=== PATIENT | male | born 1975 | race African-American/Black ===

== ENCOUNTER 2017-01-10 16:49 | Emergency (ER) | payer MEDICARE ==
[~2017-01-10 16:49] MED LIST: ASPIRIN ADULT L81 M2; ATENOLOL25 MG PO; ATENOLOL50 MG PO; ATORVASTATI80 MG/TAB PO; AZITHROMYCIN250 MG PO; BACTRIM DS1 TAB PO; BENADRYL25 MG; BRILINTA90 MG PO; CATAPRES0.1 MG PO; CIPRODEX1 ML AS; CLINDAMYCIN300 M1 PO; DENIES CURRENT MEDS; DIOVAN80 MG PO; FLEXERIL PO; FLONASE NASAL50 MCG; HYDROCHLOROT12.5 MG PO; HYDROCODONE/ACE1 TAB PO; LISINOP/HCTZ1 TA1 PO; LISINOPRIL/HYDR1 TA1 PO; LISINOPRIL20 M1 PO; LISINOPRIL20 MG PO; LORTAB 10-325 M1 TAB PO; LORTAB 5/3255 MG PO; LORTAB 7.5-3251 TAB PO; MAXZIDE-25MG1 COMBO PO; MEDDOSEPAK OR; METOPROLOL50 M1 PO; MOTRIN800 MG PO; MUCINEX D1 TAB PO; NAPROSYN500 MG PO; NEXIUM40 M1 PO; NO HOME MEDS; NORCO1 TA1 PO; NORCO1 TA2 PO; PERCOCET 10/31 COMBO PO; PERCOCET 5/325M1 TAB PO; PREVPAC PO; PROTONIX40 M2 PO; PROTONIX40 MG PO; ROBITUSSIN AC10 ML PO; TENORMIN25 MG PO; TESSALON200 MG PO; TRAMADOL HCL50 MG PO; TUSSIONEX1 ML OR; ULTRAM50 M1 PO; ULTRAM50 MG OR; ZITHROMAX250 MG OR; ZITHROMAX250 MG PO; ZITHROMAX500 MG PO; ZOFRAN ODT8 MG PO; ZOFRAN4 MG/TAB PO; ZPAK PO
== END 2017-01-10 17:05 | disposition left against medical advice (07) ==
LOC: ED 16:49 → LWOBS 17:05
DX: Z91.19 Patient's noncompliance with other medical treatment and regimen (principal)

== ENCOUNTER 2018-11-03 08:47 | Emergency (ER) | payer MEDICARE, MEDICAID ==
[~2018-11-03] VITALS: Ht 172.7 cm; Wt 100.0 kg
[~2018-11-03 08:47] MED LIST changes: +FLEXERIL5 M1 PO; +HYZAAR1 TA1 PO; +VOLTAREN - GENE75 MG PO
[2018-11-03 09:03] VITALS: BP 152/92
[2018-11-03] MEDS ORDERED: HYZAAR1 TA2 PO (09:10)
[2018-11-03] MEDS ORDERED: NIFEDIPINE10 M1 PO (09:11)
[2018-11-03] MEDS ORDERED: TRAMADOL HYDROC50 MG PO (09:53)
== END 2018-11-03 10:05 | disposition home or self-care (01) ==
LOC: ED 08:47
DX: K08.89 Other specified disorders of teeth and supporting structures (principal); K08.409 Partial loss of teeth, unspecified cause, unspecified class

== ENCOUNTER 2019-02-07 14:05 | Emergency (ER) | payer OTHER ==
[~2019-02-07] VITALS: Ht 172.7 cm; Wt 100.0 kg
[~2019-02-07 14:05] MED LIST changes: +HYZAAR1 TA2 PO; +NIFEDIPINE10 M1 PO; +TRAMADOL HYDROC50 MG PO
[2019-02-07] MEDS ORDERED: ATORVASTATIN CA80 MG PO (14:21)
[2019-02-07 14:45] LABS: HEMATOCRIT 40.8 % (39.0-50.0); HEMOGLOBIN 12.4 g/dl (14.0-18.0); IMMATURE GRANULOCYTES 0.4 % (0.0-5.0); MEAN CELL VOLUME 76.7 fL CALC (80.0-100.0); MEAN CORPUSCULAR HGB 23.3 pG CALC (26.0-32.0); MEAN CORPUSCULAR HGB CONC 30.4 g/L CALC (32.0-36.0); NEUT# 2.96 thou/uL (1.82-7.42); RED BLOOD COUNT 5.32 mill/uL (4.70-6.10)
[2019-02-07 15:09] LABS: ALBUMIN 4.6 g/dL (3.2-5.0); ALKALINE PHOSPHATASE 56 u/l (38-126); ANION GAP 14 (6-22 (CALC)); BILIRUBIN, TOTAL 0.7 mg/dL (0.0-1.4); BUN 13 mg/dL (9-20); BUN/CREATININE RATIO 16 (12-20 (CALC)); CARBON DIOXIDE 29 mmol/l (22-30); CHLORIDE 102 mmol/l (95-108); CREATININE 0.8 mg/dL (0.7-1.3); GFR > 60 ML/MIN (>=60 (CALC)); GFR FOR AFR.AMER. > 60 ML/MIN (>=60 (CALC)); LIPASE 39 u/l (23-300); POTASSIUM 3.7 mmol/l (3.5-5.1); SGOT/AST 34 u/l (17-59); SODIUM 142 mmol/l (137-146)
[2019-02-07 18:17] VITALS: BP 122/66
== END 2019-02-07 18:24 | DRG 313 ==
LOC: ED 14:05
PROVIDERS: Emergency Medicine
DX: R07.89 Other chest pain (principal); I10 Essential (primary) hypertension; I25.2 Old myocardial infarction; Z86.73 Personal history of transient ischemic attack (TIA), and cerebral infarction without residual deficits

== ENCOUNTER 2019-06-09 14:32 | Emergency (ER) | payer OTHER ==
[~2019-06-09] VITALS: Ht 172.7 cm; Wt 100.0 kg
[~2019-06-09 14:32] MED LIST changes: -ASPIRIN ADULT L81 M2; +ASPIRIN ADULT L81 M2 PO; +ATORVASTATIN CA80 MG PO
[2019-06-09] MEDS ORDERED: HYDROXYZ HCL25 MG PO (14:49)
[2019-06-09] MEDS ORDERED: NIFEDIPINE60 MG PO (14:51)
[2019-06-09] MEDS ORDERED: MYTAB GAS80 MG PO (14:52)
[2019-06-09] MEDS ORDERED: ECK ANTACID1 CHW PO (14:52)
[2019-06-09] MEDS ORDERED: TYLENOL500 MG PO (14:53)
[2019-06-09 15:00] LABS: HEMATOCRIT 39.4 % (39.0-50.0); HEMOGLOBIN 12.1 g/dl (14.0-18.0); IMMATURE GRANULOCYTES 0.2 % (0.0-5.0); MEAN CELL VOLUME 75.6 fL CALC (80.0-100.0); MEAN CORPUSCULAR HGB 23.2 pG CALC (26.0-32.0); MEAN CORPUSCULAR HGB CONC 30.7 g/L CALC (32.0-36.0); NEUT# 1.34 thou/uL (1.82-7.42); RED BLOOD COUNT 5.21 mill/uL (4.70-6.10); RED CELL DISTRI WIDTH 16.6 % (11.5-15.5)
[2019-06-09 15:17] LABS: ANION GAP 12 (6-22 (CALC)); BUN 10 mg/dL (9-20); BUN/CREATININE RATIO 11 (12-20 (CALC)); CARBON DIOXIDE 29 mmol/l (22-30); CHLORIDE 103 mmol/l (95-108); CREATININE 0.9 mg/dL (0.7-1.3); GFR > 60 ML/MIN (>=60 (CALC)); GFR FOR AFR.AMER. > 60 ML/MIN (>=60 (CALC)); POTASSIUM 3.7 mmol/l (3.5-5.1); SODIUM 141 mmol/l (137-146)
[2019-06-09 16:52] LABS: INTERNATIONAL NORMALIZED RATIO 0.9 RATIO (0.7-1.3); PROTHROMBIN TIME 9.8 SECONDS (9.0-12.5)
[2019-06-09 18:37] VITALS: BP 139/76
== END 2019-06-09 18:40 | disposition short-term general hospital (02) | DRG 311 ==
LOC: ED 14:32 → ED-I 15:02 → ED 15:02 → ED-I 16:14 → ED 18:40
PROVIDERS: Family Medicine
DX: I20.0 Unstable angina (principal); I10 Essential (primary) hypertension; I25.2 Old myocardial infarction; Z95.5 Presence of coronary angioplasty implant and graft
CPT/HCPCS: J1644

== ENCOUNTER 2020-04-02 23:29 | Emergency (ER) | payer MEDICARE, MEDICAID ==
[~2020-04-02 23:29] MED LIST changes: +ECK ANTACID1 CHW PO; +HYDROXYZ HCL25 MG PO; +MYTAB GAS80 MG PO; +NIFEDIPINE60 MG PO; +TYLENOL500 MG PO
[2020-04-03 02:16] LABS: URINE BILIRUBIN - DIPSTICK NEGATIVE (NEGATIVE); URINE BLOOD DIPSTICK NEGATIVE (NEGATIVE); URINE COLOR YELLOW; URINE GLUCOSE - DIPSTICK NEGATIVE (NEGATIVE); URINE KETONE NEGATIVE (NEGATIVE); URINE LEUK ESTERASE NEGATIVE (NEGATIVE); URINE NITRITE - DIPSTICK NEGATIVE (Negative); URINE PROTEIN - DIPSTICK NEGATIVE (NEG-TRACE); URINE UROBILINOGEN - DIPSTICK 0.2 E.U./dL (0.2)
[2020-04-03] MEDS ORDERED: ORPHENADRINE100 MG PO (02:49)
[2020-04-03] MEDS ORDERED: IBUPROFEN600 MG PO (02:50)
[2020-04-03 03:07] VITALS: BP 119/68
== END 2020-04-03 03:13 | disposition home or self-care (01) ==
LOC: ED 23:29
PROVIDERS: Emergency Medicine
DX: M54.5 Low back pain (principal); I10 Essential (primary) hypertension; I25.2 Old myocardial infarction; Z86.73 Personal history of transient ischemic attack (TIA), and cerebral infarction without residual deficits

== ENCOUNTER 2020-12-09 17:10 | Emergency (ER) | payer OTHER, MEDICARE ==
[~2020-12-09] VITALS: Ht 175.3 cm; Wt 106.0 kg
[~2020-12-09 17:10] MED LIST changes: +IBUPROFEN600 MG PO; +ORPHENADRINE100 MG PO
[2020-12-09] MEDS ORDERED: NIFEDIPINE ER90 MG PO (18:17)
[2020-12-09] MEDS ORDERED: LOPRESSOR 550 MG/TAB PO (18:18)
[2020-12-09] MEDS ORDERED: PROMETHAZINE PO (18:19)
[2020-12-09 18:55] VITALS: BP 151/89
== END 2020-12-09 18:55 | disposition home or self-care (01) | DRG 563 ==
LOC: ED 17:10
DX: S46.912A Strain of unspecified muscle, fascia and tendon at shoulder and upper arm level, left arm, initial encounter (principal); I10 Essential (primary) hypertension; I25.2 Old myocardial infarction; F41.9 Anxiety disorder, unspecified; V89.2XXA Person injured in unspecified motor-vehicle accident, traffic, initial encounter; Z86.73 Personal history of transient ischemic attack (TIA), and cerebral infarction without residual deficits; Z95.5 Presence of coronary angioplasty implant and graft

== ENCOUNTER 2021-04-13 13:33 | Observation (INO) | payer MEDICARE, MEDICAID ==
[~2021-04-13] VITALS: Ht 175.3 cm; Wt 98.0 kg
[~2021-04-13 13:33] MED LIST changes: +LOPRESSOR 550 MG/TAB PO; +NIFEDIPINE ER90 MG PO; +PROMETHAZINE PO
--- NOTE | 2021-04-13 13:43 | NUR ---
AMBULATED TO ROOM WITH STEADY GAIT, ACCOMPANIED BY .
[2021-04-13 14:26] LABS: HEMATOCRIT 41.7 % (39.0-50.0); HEMOGLOBIN 13.3 g/dl (14.0-18.0); IMMATURE GRANULOCYTES 0.2 % (0.0-5.0); MEAN CELL VOLUME 75.1 fL CALC (80.0-100.0); MEAN CORPUSCULAR HGB CONC 31.9 g/dL CAL (32.0-36.0); NEUT# 4.12 thou/uL (1.82-7.42); RED BLOOD COUNT 5.55 mill/uL (4.70-6.10); RED CELL DISTRI WIDTH 15.7 % (11.5-15.5)
[2021-04-13 14:28] LABS: URINE BILIRUBIN - DIPSTICK NEGATIVE (NEGATIVE); URINE BLOOD DIPSTICK NEGATIVE (NEGATIVE); URINE COLOR YELLOW; URINE GLUCOSE - DIPSTICK NEGATIVE (NEGATIVE); URINE KETONE NEGATIVE (NEGATIVE); URINE LEUK ESTERASE NEGATIVE (NEGATIVE); URINE PH 7.5 (4.5-8.0); URINE PROTEIN - DIPSTICK NEGATIVE (NEG-TRACE); URINE UROBILINOGEN - DIPSTICK 0.2 E.U./dL (0.2)
[2021-04-13 14:31] LABS: URINE NITRITE - DIPSTICK NEGATIVE (Negative)
--- NOTE | 2021-04-13 14:50 | NUR ---
MEDICATED WITH TORADOL IVP, ATIVAN IVP FOR C/O 7/10 RUQ PAIN.
[2021-04-13 14:58] LABS: ALBUMIN 4.2 g/dL (3.2-5.0); ALKALINE PHOSPHATASE 58 u/l (38-126); ANION GAP 13 (6-22 (CALC)); BUN 12 mg/dL (9-20); BUN/CREATININE RATIO 12 (12-20 (CALC)); CARBON DIOXIDE 31 mmol/l (22-30); CHLORIDE 98 mmol/l (95-108); GFR > 60 ML/MIN (>=60 (CALC)); GFR FOR AFR.AMER. > 60 ML/MIN (>=60 (CALC)); LIPASE 35 u/l (23-300); SGOT/AST 36 u/l (17-59); SODIUM 138 mmol/l (137-146); TOTAL PROTEIN 7.8 g/dL (6.3-8.2)
[2021-04-13 15:02] LABS: BILIRUBIN, TOTAL 1.2 mg/dL (0.0-1.4)
[2021-04-13] MEDS ORDERED: ATORVASTATIN CA20 MG PO (15:39)
--- NOTE | 2021-04-13 16:42 | NUR ---
MEDICATED WITH MORPHINE 4MG IVP FOR C/O 8/ RUQ PAIN.
--- NOTE | 2021-04-13 16:50 | NUR ---
MD AT BEDSIDE TO DISCUSS RESULTS AND POC.
--- NOTE | 2021-04-13 17:00 | NUR ---
SBAR PRINTED TO FLOOR
--- NOTE | 2021-04-13 18:58 | NUR ---
IN ROOM IV ANTIBIOTIC INFUSING WELL, NO REDNESSOR EDEMA NOTED.
--- NOTE | 2021-04-13 19:07 | NUR ---
REPORT CALLED TO XAVIER DOLL.
--- NOTE | 2021-04-13 19:09 | NUR ---
TO MED SURG VIA WHEELCHAIR
[2021-04-13 19:12] VITALS: BP 130/72
--- NOTE | 2021-04-13 19:30 | NUR ---
PATIENT ADMITTED FROM ER VIA WHEELCHAIR WITH ER STAFF IN ATTENDANCE. PATIENT IS ABLE TO TRANSFER TO BED INDEPENDENTLY BUT DOES HAVE SOME RIGHT SIDED WEAKNESS FROM PREVIOUS STROKE. AWAKE ALERT AND ORIENTEDX3. ADMITTED FOR ACUTE APPY WITH DR. FLORES ON SURGICAL CONSULT. IV SITE TO LAC INTACT AND HEALTHY AT THIS TIME WITH GOOD BLOOD RETURN. PATIENT MEDICATED WITH DILAUDID 1MG IVP FOR RIGHT SIDED ABD PAIN. IVF NS HUNG AND INFUSING AT 125CC/HR. NPO AT THIS TIME. ABD IS SOFT WITH ACTIVE BS. VOIDING QS CLEAR YELLOW URINE IN URINAL. LUNGS ARE CLEAR. NO PERIPHERAL EDEMA NOTED. PULSES ARE PALPABLE. ORIENTED PATIENT TO ROOM AND SURROUNDINGS. INSRUCTED ON USE OF NURSE CALL LIGHT SYSTEM, TV REMOTE AND PHONE. SAFETY PRECAUTIONS REINFORCED. CALL LIGHT IN REACH. WILL CONT TO MONITOR.
--- NOTE | 2021-04-13 23:30 | NUR ---
PATIENT RESTING IN BED AT THIS TIME-AWAKE ALERT AND ORIENTED. REMAINS NPO FOR OR. KCL RIDER INFUSING VIA LAC SITE AT 50CC/HR. IVF PATENT AND INFUSING AT 125CC/HR. CALL LIGHT IN REACH. WILL CONT TO MONITOR.
[2021-04-14] VITALS (11 sets, daily range): BP systolic 118–154; BP diastolic 63–86
--- NOTE | 2021-04-14 00:49 | NUR ---
RECIEVED CALL FROM DR. FLORES TO SAY THAT HE WAS GOING TO TAKE THIS PATIENT TO SURGERY TONIGHT FOR LAP APPY. PATIENT REMAINS NPO-LAST ATE AT 1330 YESTERDAY. PATIENT ADVISED OF THE SURGERY TO BE DONE TONIGHT. PATIENT UP TO THE BR TO VOID AND TOOK SHOWER USING ANTIBACTERIAL SCRUB. NO JEWELERY ON. IVF NS PATIENT AND INFUSING VIA LAC SITE ORDERED. KCL IS IN PROGRESS ORDERED AT 50CC/HR. SITE IS HEALTHY. PATIENT IS ANXIOUS-MEDICATED FOR PAIN WITH DILAUDID 1MG IVP FOR 7/10 PAIN SCALE. CONSENT SIGNED AND PRE-OP CHECKLIST IS DONE. SAFETY PRFECAUTIONS REINFORCED. CALL LIGHT IN REACH. WILL CONT TO MONITOR.
--- NOTE | 2021-04-14 01:25 | NUR ---
KCL RIDER FINISHED. ZOFRAN 4MG IVP GIVEN FOR NAUSEA. IVF NS PATENT AND INFUSING VIA LAC SITE. PATIENT CONT TO COMPLAIN OF FEELING ANXIOUS. PATIENT TO OR VIA STRETCHER WITH OR STAFF IN ATTENDANCE. WILL CONT TO FOLLOW.
--- NOTE | 2021-04-14 03:30 | NUR ---
PATIENT RETURNED FROM PACU VIA STRETCHER WITH PACU STAFF IN ATTENDANCE. PATIENT ASSISTED FROM STRETCHER TO BED. PATIENT IS DROWSY BUT AROUSABLE. O2 VIA NASAL CANNULA IN PLACE. IV SITE TO LEFT AC INTACT WITH LR PATENT AND INFUSING AT 100CC/HR. KCL HUNG ORDERED AT 50CC/HR. ABD IS DISTENDED WITH 23 SMALL DRESSING CDI. HYPOACTIVE BS. SCD'S IN PLACE. CALL LIGHT IN REACH. WILL CONT TO MONITOR.
--- NOTE | 2021-04-14 05:00 | NUR ---
RESTING IN BED WITH O2 VIA NASAL CANNULA IN PLACE AT 2LPM. O2 SATS ARE 96%. VS REMAINS STABLE. IVF PATENT AND INFUSING ORDERED VIA LAFT AC SITE. DRESSING TO ABD REMAIN CDI. DROWSY BUT AROUSABLE. CALL LIGHT IN REACH. WILL CONT TO MONITOR.
--- NOTE | 2021-04-14 06:19 | NUR ---
PATIENT RESTING-FLAGYL HUNG ORDERED. VIA LEFT AC SITE. KCL FINISHED. VS REMAINS STABLE. CALL LIGHT IN REACH. WILL CONT TO MONITOR.
--- NOTE | 2021-04-14 07:00 | NUR ---
SHIFT CHANGE REPORT, PT AWAKE ALERT AND ORIENTED, C/O THROAT SORENESS AND ABD PAIN SHARP PAIN @ 10/10, IVF INFUSING, PUNCTURE X 3 TO LEFT ABD WITH 2X2 NARAYAN SECURED WITH TEGADERM IN PLACE AND CDI, ALSO C/O NOT BEING ABLE TO URINATE NORMALLY BUT DID VERY MINIMAL AMOUNT. INFORMED THAT THROAT PAIN IS NORMAL AGTER THE SURGERY HE DID AND THAT WOULD BE RESOLVED IN A COUPLE OF DAYS, LOSANGES ORDERED FOR HIM AFTER INFORMING MD OF CONCERN, PAIN CONCERN ADDRESSED, IVF INFUSING, CALL BURROUGHS IN REACH AND BED LOCKED IN LOWEST POSITION.
--- NOTE | 2021-04-14 12:00 | NUR ---
RESTING IN BED, ADVISED AND ENCOURAGED TO GET OOB AND AMBULATE, HE AMBULATED DOWN HALLWAY AND BACK TO ROOM, PAIN CONCERN ADDRESSED, ASKING FOR XANAX AT THIS TIME, ADVISED NOT ON MED REC AND NURSE WILL ADDRESS CONCERN WITH MD, PHARMACY NOTIVIED AND WILL REPORT FINDINGS LATER.
--- NOTE | 2021-04-14 16:00 | NUR ---
PT IN BED REQUESTING XANAX AND STATES HE TAKES IT TID, PHARMACY NOTIFIED, DID [facility] AND REPORTED COULDNT FIND THAT MED DISPENSED T PT AT ANY PHAR[facility], PT SLEEPING AT THIS TIME, NO SIGN DISCOMFORT, BREATHING EVEN AND NON-LABORED.
--- NOTE | 2021-04-14 19:49 | NUR ---
PT IS ON CELL PHONE. DENIED ANY NEEDS AT THIS TIME. IVF RUNNING/SITE APPEARS HEALTHY AT THIS TIME.
--- NOTE | 2021-04-14 22:12 | NUR ---
PT MEDICATED ORDERS PROVIDE. IV ANTIBIOTIC THERAPY ADMINISTERED AT THIS TIME. PT ASKING FOR SHOWER, ADVISED HIM TO WAIT UNTIL TOMORROW DUE TO INCISIONS DRESSED, HE AGREED. DC DISCUSSED AT THIS TIME ALSO. PT REPORTS THAT HE WILL TAKE A SHOWER IF ORDERS ALLOW PRIOR TO LEAVING TOMORROW.
--- NOTE | 2021-04-14 22:40 | NUR ---
SNACK PROVIDED PER REQUEST.
--- NOTE | 2021-04-15 00:10 | NUR ---
PT MEDICATED FOR PAIN 6/10 ON PAIN SCALE IN RUQ.
[2021-04-15 03:54] VITALS: BP 137/77
--- NOTE | 2021-04-15 04:26 | NUR ---
IVF REPLENISHED AND IV ANTIBIOTIC THERAPY ADMINISTERED AT THIS TIME. PT ASKING FOR A SNACK. HE DOES REPORT THAT HIS LIP FEELS "BUSTED" SINCE HE CAME OUT OF SURGERY. LIP BALM PROVIDED.
--- NOTE | 2021-04-15 05:59 | NUR ---
PT MEDICATED ORDERS PROVIDE. DENIES ANY OTHER NEEDS.
[2021-04-15 07:45] VITALS: BP 135/72
--- NOTE | 2021-04-15 09:15 | NUR ---
PAITENT LAYING IN BED ALERT AND ORIENTED AT THIS TIME. PATIENT DENIES PAIN AT THIS TIME NEON TECHNICIAN DONE SEE INTERVENTIONS. ABDOMINAL LAP SURGICAL SITES THREE ON LEFT SIDE ARE DRY AND INTACT. BOWEL SOUNDS ARE ACTIVE IN ALL FOUR QUADRANTS AT THIS TIME. SIDERAILS ARE UP CALL LIGHT WITHIN REACH.
[2021-04-15 10:30] VITALS: BP 109/69
--- NOTE | 2021-04-15 12:03 | NUR ---
PATIENT LAYING IN BED AT THIS TIME. DENIES ANY NEEDS AND OR PAIN AT THIS TIME. SIDERAILS ARE UP CALL LIGHT WITHIN REACH.
[2021-04-15] MEDS ORDERED: PERCOCET 5/325M1 TAB PO (13:57)
--- NOTE | 2021-04-15 14:16 | NUR ---
DR. PADILLA IN TO SEE PATIENT AND PATIENT HAS BEEN D/C IV REMOVED AND D/C INSTRUCTIONS GONE OVER WITH PATIENT AND PATIENT VERBALLY UNDERSTANDS.
--- NOTE | 2021-04-15 15:07 | NUR ---
4Discharge instructions given. Patient verbalizes understanding of same. Discharged in stable condition via Wheelchair to Home with family. All belongings sent with pt.
== END 2021-04-15 15:06 | disposition home or self-care (01) ==
LOC: ED 13:33 → ED-I 16:39 → ED 16:58 → MS2 16:59
PROVIDERS: Family Medicine; ADMIT Internal Medicine; ATTEND Surgery
PROC: 0DTJ4ZZ Resection of Appendix, Percutaneous Endoscopic Approach (ICD-10-PCS; principal; 2021-04-14)
DX: K35.30 Acute appendicitis with localized peritonitis, without perforation or gangrene (principal); I10 Essential (primary) hypertension; F41.9 Anxiety disorder, unspecified; I25.2 Old myocardial infarction; I25.10 Atherosclerotic heart disease of native coronary artery without angina pectoris; Z86.73 Personal history of transient ischemic attack (TIA), and cerebral infarction without residual deficits; Z95.5 Presence of coronary angioplasty implant and graft; Z86.19 Personal history of other infectious and parasitic diseases; Z20.822 Contact with and (suspected) exposure to COVID-19
CPT/HCPCS: G0378; J2060; J2710; J3475; Q9967

== ENCOUNTER 2021-06-11 22:59 | Emergency (ER) | payer MEDICARE, MEDICAID ==
[~2021-06-11] VITALS: Ht 175.3 cm; Wt 97.0 kg
[~2021-06-11 22:59] MED LIST changes: +ATORVASTATIN CA20 MG PO
[2021-06-11] MEDS ORDERED: KEFLEX500 MG PO (23:33)
[2021-06-11] MEDS ORDERED: PERCOCET 5/321 COMBO PO (23:33)
[2021-06-12 00:38] VITALS: BP 129/68
== END 2021-06-12 00:38 | disposition home or self-care (01) ==
LOC: ED 22:59
DX: S61.011A Laceration without foreign body of right thumb without damage to nail, initial encounter (principal); I10 Essential (primary) hypertension; F41.9 Anxiety disorder, unspecified; I25.2 Old myocardial infarction; W27.4XXA Contact with kitchen utensil, initial encounter; Y93.G3 Activity, cooking and baking; Y92.000 Kitchen of unspecified non-institutional (private) residence as the place of occurrence of the external cause; Z86.73 Personal history of transient ischemic attack (TIA), and cerebral infarction without residual deficits; Z95.5 Presence of coronary angioplasty implant and graft

== ENCOUNTER 2022-02-24 09:05 | Emergency (ER) | payer MEDICARE, MEDICAID ==
[~2022-02-24] VITALS: Ht 175.3 cm; Wt 101.3 kg
[~2022-02-24 09:05] MED LIST changes: +KEFLEX500 MG PO; +PERCOCET 5/321 COMBO PO
[2022-02-24 09:19] VITALS: BP 113/71
[2022-02-24 09:30] VITALS: BP 88/69
[2022-02-24] MEDS ORDERED: MELOXICAM7.5 MG PO (09:51)
[2022-02-24] MEDS ORDERED: CYCLOBENZAPRINE10 MG PO (09:51)
[2022-02-24] MEDS ORDERED: PREDNISONE20 MG PO (09:51)
[2022-02-24 10:00] VITALS: BP 101/65
[2022-02-24 10:26] VITALS: BP 101/65
== END 2022-02-24 10:38 | disposition home or self-care (01) ==
LOC: ED 09:05
DX: M54.9 Dorsalgia, unspecified (principal); G89.29 Other chronic pain; I10 Essential (primary) hypertension; F41.9 Anxiety disorder, unspecified; I25.2 Old myocardial infarction; Z86.73 Personal history of transient ischemic attack (TIA), and cerebral infarction without residual deficits; Z95.5 Presence of coronary angioplasty implant and graft; M54.16 Radiculopathy, lumbar region
CPT/HCPCS: A9579; J2060

== ENCOUNTER 2023-04-18 08:24 | Emergency (ER) | payer MEDICARE, MEDICAID ==
[~2023-04-18] VITALS: Ht 175.3 cm; Wt 99.8 kg
[~2023-04-18 08:24] MED LIST changes: +CYCLOBENZAPRINE10 MG PO; +MELOXICAM7.5 MG PO; +PREDNISONE20 MG PO
[2023-04-18 08:58] LABS: URINE BILIRUBIN - DIPSTICK NEGATIVE (NEGATIVE); URINE BLOOD DIPSTICK NEGATIVE (NEGATIVE); URINE COLOR YELLOW; URINE GLUCOSE - DIPSTICK NEGATIVE (NEGATIVE); URINE KETONE NEGATIVE (NEGATIVE); URINE LEUK ESTERASE NEGATIVE (NEGATIVE); URINE PH 6.5 (4.5-8.0); URINE PROTEIN - DIPSTICK NEGATIVE (NEG-TRACE); URINE SPECIFIC GRAVITY <=1.005; URINE UROBILINOGEN - DIPSTICK 0.2 E.U./dL (0.2)
[2023-04-18 09:00] LABS: BASO% 0.2 % (0-3); EOS% 0.9 % (0-8); HEMATOCRIT 41.3 % (39.0-50.0); HEMOGLOBIN 12.8 g/dl (14.0-18.0); IMMATURE GRANULOCYTES 0.3 % (0.0-5.0); LYMPH% 38.4 % (15-41); MEAN CELL VOLUME 74.4 fL CALC (80.0-100.0); MEAN CORPUSCULAR HGB 23.1 pG CALC (26.0-32.0); MONO% 10.7 % (2-13); NEUT# 2.88 thou/uL (1.82-7.42); NEUT% 49.5 % (42-76); RED BLOOD COUNT 5.55 mill/uL (4.70-6.10); RED CELL DISTRI WIDTH 15.3 % (11.5-15.5)
[2023-04-18 09:09] LABS: URINE NITRITE - DIPSTICK NEGATIVE (Negative)
[2023-04-18 09:13] LABS: ALBUMIN 4.9 g/dL (3.2-5.0); ALKALINE PHOSPHATASE 50 u/l (38-126); BILIRUBIN, TOTAL 1.2 mg/dL (0.2-1.3); BUN 16 mg/dL (9-20); BUN/CREATININE RATIO 13 (12-20 (CALC)); CHLORIDE 102 mmol/l (95-108); CREATININE 1.3 mg/dL (0.7-1.3); GFR FOR AFR.AMER. > 60 ML/MIN (>=60 (CALC)); GFR OTHER RACES 59 ML/MIN (>=60 (CALC)); POTASSIUM 2.9 mmol/l (3.5-5.1); SGOT/AST 38 u/l (17-59); SODIUM 139 mmol/l (137-146); TOTAL PROTEIN 8.3 g/dL (6.3-8.2)
[2023-04-18 09:15] LABS: ANION GAP 21 (6-22 (CALC)); CARBON DIOXIDE 19 mmol/l (22-30)
[2023-04-18 15:29] VITALS: BP 143/83
== END 2023-04-18 15:32 | disposition home or self-care (01) ==
LOC: ED 08:24
PROVIDERS: Family Medicine
DX: E87.6 Hypokalemia (principal); F41.9 Anxiety disorder, unspecified; I10 Essential (primary) hypertension; Z86.73 Personal history of transient ischemic attack (TIA), and cerebral infarction without residual deficits; Z95.5 Presence of coronary angioplasty implant and graft; R06.02 Shortness of breath